=== PATIENT | female | born 1960 | race Caucasian/White ===

== ENCOUNTER 2017-12-11 20:39 | Emergency (ER) | payer OTHER ==
[~2017-12-11] VITALS: Ht 162.6 cm; Wt 82.5 kg
[2017-12-11 21:07] VITALS: Ht 162.6 cm; Wt 82.5 kg
[2017-12-12 00:30] VITALS: BP 119/51
== END 2017-12-12 00:30 | disposition home or self-care (01) ==
LOC: ED 20:39
DX: S16.1XXA Strain of muscle, fascia and tendon at neck level, initial encounter (principal); I10 Essential (primary) hypertension; V49.9XXA Car occupant (driver) (passenger) injured in unspecified traffic accident, initial encounter; Y93.89 Activity, other specified; Y92.89 Other specified places as the place of occurrence of the external cause; Y99.8 Other external cause status; S20.212A Contusion of left front wall of thorax, initial encounter
CPT/HCPCS: J1885

== ENCOUNTER 2018-09-23 02:36 | Emergency (ER) | payer OTHER ==
[~2018-09-23] VITALS: Ht 160 cm; Wt 84.8 kg
[2018-09-23 02:45] VITALS: Ht 160 cm; Wt 84.8 kg
[2018-09-23 03:34] LABS: BASOPHIL % 0.9 % (0-2); PLATELET COUNT 330 x10^3mcL (130-400); RED CELL DISTRIBUTION WIDTH 13.1 % (11.5-14.5)
[2018-09-23 04:06] LABS: ALBUMIN 3.6 g/dL (3.4-5.0); ALKALINE PHOSPHATASE 106 U/L (46-116); ALT/SGPT 23 U/L (14-59); AST/SGOT 19 U/L (15-37); BILIRUBIN TOTAL 0.73 mg/dL (0.20-1.00); CALCIUM 9.3 mg/dL (8.5-10.1); CARBON DIOXIDE 27.9 mmol/L (21-32); CHLORIDE SERUM 94 mmol/L (98-107); CREATININE SERUM 0.8 mg/dL (0.6-1.0); GFR1 > 60 mL/min; GLUCOSE SERUM 105 mg/dL (74-106); SODIUM SERUM 130 mmol/L (136-145); TOTAL PROTEIN, SERUM 7.7 g/dL (6.4-8.2)
[2018-09-23 04:28] LABS: POTASSIUM SERUM 2.9 mmol/L (3.5-5.1)
[2018-09-23 07:26] VITALS: BP 125/61
== END 2018-09-23 07:38 | disposition home or self-care (01) ==
LOC: ED 02:36
PROVIDERS: Emergency Medicine
DX: R53.1 Weakness (principal); R42 Dizziness and giddiness; E87.1 Hypo-osmolality and hyponatremia; E86.0 Dehydration; I10 Essential (primary) hypertension
CPT/HCPCS: J2765; J3480; J7030